=== PATIENT | female | born 1990 | race Two or more races ===

== ENCOUNTER 2017-08-03 21:57 | Emergency (ER) | payer OTHER ==
[~2017-08-03] VITALS: Ht 162.6 cm; Wt 63.5 kg
--- NOTE | ~2017-08-03 | EKG ---
PATIENT: MIKAELA RAMSEY UNIT #: [id number] Ventricular Rate: 88 BPM Atrial Rate: 88 BPM P-R Interval: 160 ms QRS Duration: 80 ms Q-T Interval: 362 ms QTC Calculation(Bezet): 438 ms P [place]: 63 degrees Calculated R [place]: 44 degrees Calculated T [place]: 44 degrees Diagnosis Line: Normal sinus rhythm Diagnosis Line: Normal ECG Diagnosis Line: No previous ECGs available Diagnosis Line: Confirmed by PARESH JONES MD ([id number]) on 08/04/2017 Diagnosis Line: 11:06:14 PM INTERPRETING MD: KAREN MONIQUE
== END 2017-08-03 23:35 | disposition home or self-care (01) ==
LOC: CED 21:57
DX: K29.70 Gastritis, unspecified, without bleeding (principal); K21.9 Gastro-esophageal reflux disease without esophagitis
CPT/HCPCS: 93005; 99285